=== PATIENT | female | born 1975 | race Caucasian/White ===

== ENCOUNTER 2018-11-25 16:37 | Emergency (ER) | payer MEDICAID, OTHER ==
[~2018-11-25] VITALS: Ht 172.7 cm; Wt 140.6 kg
[2018-11-25 16:41] VITALS: BP_SYST 152
--- NOTE | 2018-11-25 16:41 | NUR ---
Patient to ER bed 03 to gown for evaluation. Side rails up. Report received from CHAPARRO Kumari.
--- NOTE | 2018-11-25 16:50 | NUR ---
Patient brought in complaining of lower back pain, nontraumatic . Pain 8/10. No other complaints/injuries per patient or asnoted. will continue to monitor.
--- NOTE | 2018-11-25 16:54 | NUR ---
WOODY No examining patient.
[2018-11-25] MEDS ORDERED: KETOROLAC TROMETHAMINE 30 MG VIAL IM ONE (17:00)
[2018-11-25] MEDS ORDERED: DEXAMETHASONE SOD PHOSPHATE 10 MG/ML VIAL IM ONE ×2 (17:00→17:30)
[2018-11-25] MEDS ORDERED: ACETAMINOPHEN 500 MG TABLET PO ONE (17:30)
[2018-11-25 18:08] VITALS: BP_SYST 146
--- NOTE | 2018-11-25 18:08 | NUR ---
Patient given written and verbal discharge instructions and verbalizes understanding. ER MD Mobley discussed with patient the results and treatment provided. Patient in stable condition. ID arm band removed. Rx of Naproxen, Flexeril and Medrol given. Patient educated on pain management and to follow up with PMD in 2-3 days. Pain Scale 0/10 Opportunity for questions provided and answered. Medication side effect fact sheet provided.
== END 2018-11-25 18:08 | disposition home or self-care (01) ==
LOC: SED 16:37
DX: M54.17 Radiculopathy, lumbosacral region (principal); F17.200 Nicotine dependence, unspecified, uncomplicated; E11.9 Type 2 diabetes mellitus without complications; R03.0 Elevated blood-pressure reading, without diagnosis of hypertension; Z90.49 Acquired absence of other specified parts of digestive tract; Z88.0 Allergy status to penicillin; Z88.1 Allergy status to other antibiotic agents; Z88.6 Allergy status to analgesic agent; Z71.6 Tobacco abuse counseling
CPT/HCPCS: 81002; 81025; 96372; 99283; J1100

== ENCOUNTER 2020-10-26 08:43 | Emergency (ER) | payer BC, OTHER ==
[~2020-10-26] VITALS: Ht 175.3 cm; Wt 137.0 kg
--- NOTE | 2020-10-26 08:45 | NUR ---
Pt walked in to ER with c/o chest pain radiating to right shoulder, 11/16 when she moves x2 hours. Reports n/v and dizziness also. EKG done at bedside and given to MD. V/S stable, no acute distress noted.
--- NOTE | 2020-10-26 08:45 | NUR ---
Placed in room 7 . Placed on monitoring specialist, blood pressure machine and pulse oximeter. To gown for exam. Side rails up.
--- NOTE | 2020-10-26 08:50 | NUR ---
ER Dr. Jones at bedside examining patient.
[2020-10-26] MEDS ORDERED: ONDANSETRON 4 MG ODT TAB PO ONE (09:00)
[2020-10-26] MEDS ORDERED: ASPIRIN 325 MG TABLET PO ONE (09:00)
--- NOTE | 2020-10-26 09:01 | NUR ---
Lab at bedside for blood draw.
[2020-10-26 09:02] VITALS: BP_SYST 122
--- NOTE | 2020-10-26 09:12 | NUR ---
Radiology at bedside for CXR
[2020-10-26 09:14] LABS: BASOPHILS # (AUTO) 0.1 K/uL (0.0-0.2); BASOPHILS % (AUTO) 0.8 % (0.0-2.0); EOSINOPHILS # (AUTO) 0.4 K/uL (0.0-0.4); EOSINOPHILS % (AUTO) 4.6 % (0.0-4.0); HEMOGLOBIN 13.1 g/dL (12.0-16.0); LYMPHOCYTES # (AUTO) 2.6 K/uL (1.0-5.5); LYMPHOCYTES % (AUTO) 26.9 % (20.5-51.5); MEAN CORPUSCULAR HEMOGLOBIN 31 pg (27-31); MEAN CORPUSCULAR HGB CONC 35 % (32-36); MEAN CORPUSCULAR VOLUME 91 fL (79.0-98.0); MONOCYTES # (AUTO) 0.5 K/uL (0.0-1.0); MONOCYTES % (AUTO) 5.1 % (1.7-9.3); NEUTROPHILS % (AUTO) 62.6 % (40.0-70.0); PLATELET COUNT (AUTO) 217 K/uL (130-430); RED BLOOD CELL COUNT(AUTO) 4.18 MIL/uL (4.2-6.2); RED CELL DISTRIBUTION WIDTH 14.2 % (9.0-15.0); WHITE BLOOD COUNT (AUTO) 9.7 K/uL (4.8-10.8)
[2020-10-26 09:26] LABS: ANION GAP 10 (5-15); CALCIUM 8.7 mg/dL (8.4-11.0); CHLORIDE 101 mmol/L (98-107); CREATININE 0.91 mg/dL (0.55-1.30); GLUCOSE 232 mg/dL (70-99); POTASSIUM 4.1 mmol/L (3.5-5.1); SODIUM SERUM 136 mmol/L (136-145); UREA NITROGEN, BLOOD 8 mg/dL (8-21)
[2020-10-26 09:34] LABS: GFR AFRICAN AMERICAN 86 mL/min (>90)
[2020-10-26 09:35] LABS: ALANINE AMINOTRANSFERASE 21 U/L (12-78); ALBUMIN 3.3 g/dL (3.4-4.8); ASPARTATE AMINOTRANSFERASE 16 U/L (10-37); LIPASE 219 U/L (73-393); TOTAL BILIRUBIN 0.3 mg/dL (0.0-1.0)
[2020-10-26] MEDS ORDERED: IOHEXOL 350 mgI/mL, 150 ML INFUS..BTL IV ONE (11:09)
--- NOTE | 2020-10-26 11:20 | NUR ---
# 20 gauge angiocath placed to RAC. Use of asceptic technique. Opsite placed over site. Blood return noted. Flushed with 10 cc of normal saline. No evidence of infiltration noted. Patient tolerated well.
--- NOTE | 2020-10-26 11:31 | NUR ---
CT consent signed and placed in chart.
--- NOTE | 2020-10-26 12:10 | NUR ---
Lab at bedside for repeat troponin.
--- NOTE | 2020-10-26 13:14 | NUR ---
Patient given written and verbal discharge instructions and verbalizes understanding. DR. SANA MCKAY MD discussed with patient the results and treatment provided. Patient in stable condition. ID arm band removed. IV catheter removed intact and dressing applied, no active bleeding. Patient educated on pain management and to follow up with PMD. Pain Scale 0/10. Opportunity for questions provided and answered.
[2020-10-26 13:15] VITALS: BP_SYST 122
== END 2020-10-26 13:14 | disposition home or self-care (01) ==
LOC: SED 08:43
DX: R07.89 Other chest pain (principal); E11.9 Type 2 diabetes mellitus without complications; F17.290 Nicotine dependence, other tobacco product, uncomplicated; Z88.0 Allergy status to penicillin; Z88.1 Allergy status to other antibiotic agents; Z20.822 Contact with and (suspected) exposure to COVID-19
CPT/HCPCS: 36415; 71045; 71275; 76376; 80053; 82962; 83690; 84484; 85025; 85379; 87426; 93005; 99285; Q0162; Q9967

== ENCOUNTER 2021-12-12 10:54 | Emergency (ER) | payer BC ==
[~2021-12-12] VITALS: Ht 172.7 cm; Wt 138.8 kg
[2021-12-12 11:07] VITALS: BP_SYST 125
--- NOTE | 2021-12-12 11:10 | NUR ---
Patient to Tent 01 to gown for evaluation. Side rails up. Report given to
--- NOTE | 2021-12-12 11:11 | NUR ---
Pt coming from home ambulatoru with steady gait. Pt c/o flu like symtomps after attending her sons democr[employer]. Has sob, sore throat, cough, body aches, and congestion. No n/v. No diarrhea. No chest pain. Pt is vaccinated. A&Ox4. VSS. Has hx of Asthma, DM, HTN, and Hyperlipidemia, Bed in lowest position.
--- NOTE | 2021-12-12 11:23 | NUR ---
Covid and flu swab done and sent to lab.
--- NOTE | 2021-12-12 13:09 | NUR ---
WOODY Tony at bedside examining patient.
--- NOTE | 2021-12-12 13:43 | NUR ---
RT at bedside to provide breathing tx.
[2021-12-12] MEDS ORDERED: ALBUTEROL SULFATE 0.083% 2.5 MG/3 ML VIAL.NEB INH ONE (13:45)
[2021-12-12] MEDS ORDERED: predniSONE 20 MG TABLET PO ONE (16:00)
[2021-12-12] MEDS ORDERED: ALBMDI INH (16:10)
[2021-12-12] MEDS ORDERED: LEVO-62 PO (16:10)
[2021-12-12] MEDS ORDERED: PRED20TA PO (16:10)
--- NOTE | 2021-12-12 16:35 | NUR ---
Patient given written and verbal discharge instructions and verbalizes understanding. ER Dr. Esme WILHELM discussed with patient the results and treatment provided. Patient in stable condition. ID arm band removed. IV catheter removed intact and dressing applied, no active bleeding. Rx of prednisone, albuterol, levoflacacin given. Patient educated on pain management and to follow up with PMD. Pain Scale 0/10. Opportunity for questions provided and answered. Medication side effect fact sheet provided.
[2021-12-12 16:39] VITALS: BP_SYST 125
== END 2021-12-12 16:39 | disposition home or self-care (01) ==
LOC: SED 10:54
DX: J20.9 Acute bronchitis, unspecified (principal); B34.9 Viral infection, unspecified; E11.9 Type 2 diabetes mellitus without complications; F17.210 Nicotine dependence, cigarettes, uncomplicated; R06.02 Shortness of breath; R05.9 Cough, unspecified; Z88.0 Allergy status to penicillin; Z88.1 Allergy status to other antibiotic agents; Z88.6 Allergy status to analgesic agent; Z79.899 Other long term (current) drug therapy; Z20.822 Contact with and (suspected) exposure to COVID-19
CPT/HCPCS: 36415; 71045; 94640; 94760; 99284; 87804 ×2; 87426; J7512; J7613

== ENCOUNTER 2023-11-14 12:00 | Emergency (ER) | payer BC, OTHER ==
[~2023-11-14] VITALS: Ht 172.7 cm; Wt 129.7 kg
[2023-11-14 12:00] VITALS: BP_SYST 131; PULSE 67; RESP 18; TEMP 98.1; O2SAT 98
[~2023-11-14 12:00] MED LIST: ALBMDI INH; LEVO-62 PO; PRED20TA PO
[2023-11-14 12:38] LABS: BASOPHILS # (AUTO) 0.1 K/uL (0.0-0.2); BASOPHILS % (AUTO) 0.8 % (0.0-2.0); EOSINOPHILS # (AUTO) 0.5 K/uL (0.0-0.4); EOSINOPHILS % (AUTO) 5.8 % (0.0-4.0); HEMATOCRIT 42.8 % (36-48); HEMOGLOBIN 14.5 g/dL (12.0-16.0); LYMPHOCYTES # (AUTO) 2.8 K/uL (1.0-5.5); LYMPHOCYTES % (AUTO) 34.9 % (20.5-51.5); MEAN CORPUSCULAR HEMOGLOBIN 31 pg (27-31); MEAN CORPUSCULAR HGB CONC 34 % (32-36); MEAN CORPUSCULAR VOLUME 92 fL (79.0-98.0); MONOCYTES # (AUTO) 0.6 K/uL (0.0-1.0); MONOCYTES % (AUTO) 7.1 % (1.7-9.3); NEUTROPHILS # (AUTO) 4.1 K/uL (1.8-7.7); NEUTROPHILS % (AUTO) 51.4 % (40.0-70.0); PLATELET COUNT (AUTO) 168 K/uL (130-430); RED BLOOD CELL COUNT(AUTO) 4.67 MIL/uL (4.2-6.2); RED CELL DISTRIBUTION WIDTH 14.1 % (9.0-15.0); WHITE BLOOD COUNT (AUTO) 7.9 K/uL (4.8-10.8)
[2023-11-14 13:02] LABS: PROTHROMBIN TIME 10.4 SECS (9.5-12.5)
[2023-11-14 13:08] LABS: ALBUMIN 3.7 g/dL (3.4-4.8); CALCIUM 8.9 mg/dL (8.4-11.0); CREATININE 0.68 mg/dL (0.55-1.30); POTASSIUM 3.7 mmol/L (3.5-5.1); TOTAL BILIRUBIN 0.6 mg/dL (0.0-1.0); TOTAL PROTEIN, SERUM 7.8 g/dL (6.4-8.3)
[2023-11-14 13:17] LABS: BILIRUBIN,DIRECT 0.1 mg/dL (0.0-0.3)
[2023-11-14] MEDS ORDERED: ASPI-1393 PO (13:45)
[2023-11-14 13:50] VITALS: BP_SYST 131; PULSE 67; RESP 18; TEMP 98.1; O2SAT 98
== END 2023-11-14 14:00 | disposition home or self-care (01) ==
LOC: SED 12:00
DX: G45.8 Other transient cerebral ischemic attacks and related syndromes (principal); H53.8 Other visual disturbances; E11.9 Type 2 diabetes mellitus without complications; I10 Essential (primary) hypertension; Z88.0 Allergy status to penicillin; Z88.1 Allergy status to other antibiotic agents; Z88.5 Allergy status to narcotic agent; Z79.899 Other long term (current) drug therapy; Z79.2 Long term (current) use of antibiotics
CPT/HCPCS: 36415; 70450-TC; 71045; 80048; 80076; 82550; 82948; 83605; 85025; 85610; 85730; 93005; 99285